=== PATIENT | female | born 1980 | race Caucasian/White ===

== ENCOUNTER 2020-03-16 14:23 | Emergency (ER) | payer OTHER, SELFPAY ==
--- NOTE | ~2020-03-16 | XR_ITS ---
XR hand LT min 3V 03/16/2020 15:00 INDICATION: Left hand pain for one week. PROCEDURE: 3 views left hand COMPARISON: No prior studies for comparison. FINDINGS: Fracture, dislocation or subluxation is not identified. The soft tissues appear within norm al limits. No foreign bodies are identified. IMPRESSION: 1: NO ACUTE BONE OR JOINT ABNORMALITY IDENTIFIED. Reviewed, dictated and finalized at location B.
[2020-03-16 14:35] VITALS: BP 168/99; PULSE 85; RESP 14; TEMP 37; O2SAT 99
--- NOTE | 2020-03-16 14:59 | ED.UPPEXIN ---
HPI - Extremity Injury (Upper) General Chief Complaint: Extremity Injury, Upper Stated Complaint: left hand swollen/painful Time Seen by Provider: 03/16/20 14:50 Source: patient Mode of arrival: ambulatory Limitations: no limitations History of Present Illness HPI narrative: Shi Lakhani is a 39 yo female with a PMH of lupus and kidney disease who comes to express care with a left wrist swelling on the medial side; this is a recurrent condition that she has had cortisone shots before for the condition; she has occasionally used hydrocodone for the pain. 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 EYES: Denies visual changes, redness, discharge. ENT: Denies rhinorrhea, congestion, sore throat, otalgia. CARDIOVASCULAR: Denies chest pain, palpitations, edema. RESPIRATORY: Denies dyspnea, wheezing, cough GASTROINTESTINAL: Denies abdominal pain, nausea, vomiting, diarrhea. GENITOURINARY: Denies dysuria, hematuria, abnormal discharge SKIN: Denies rash or itching. NEUROLOGIC: Denies numbness, or focal weakness. PSYCHIATRIC: Denies anxiety or depression. Left wrist medial swelling and pain-no injury but overuse PMFSH Past Medical History Medical History CKD (chronic kidney disease) Lupus Family History Family History Other Diabetes mellitus Heart disease Social History Social History (Updated 03/16/20 @ 15:06 by Tessa Antunez CNP) Smoking status: Never smoker Alcohol intake: never Comments At time of signature, I agree with nursing past medical, surgical, social and family history. There is no relevant family history pertinent to the presenting complaint. Blood pressure is elevated today possibly due to pain and swelling; current chronic kidney disease, or lack of medication Exam Narrative: Exam Narrative: GENERAL: This is a well-nourished, well-developed patient, in mild distress. HEAD: normocephalic, atraumatic. EYES: Sclera clear/white. Vision is grossly intact. EARS: External ears normal, Hearing grossly intact. NOSE: External nose normal without nasal discharge, nares without redness, no rhinorrhea. THROAT: Mucous membranes moist, NECK: Neck supple, non-tender CARDIOVASCULAR: Regular rate and rhythm without murmurs, gallops, or rubs. RESPIRATORY: Clear to auscultation. Breath sounds equal bilaterally. No wheezes, rales, or rhonchi. GASTROINTESTINAL: Abdomen soft, SKIN: warm, intact with no suspicious lesions or rash, good texture and turgor. NEURO: awake, alert, and oriented to person, place and time. There were no obvious focal neurologic abnormalities. Steady gait EXTREMITIES: Normal range of motion. Left wrist: ` Swelling at joint which appears to be a ganglia sorts soft not red not warm to touch, pain on movement BACK: Nontender without deformity Course Course Emergency Course: X-ray of left wrist-results:negative for soft tissue swelling or bony growth, no trauma. Antonio wrap applied, Antonio wrap-Tramadol with pain Follow-up with orthopedist for possible steroid injection Once acquired after patient was discharged to let me know that patient has monthly prescriptions 120 hydrocodone fives-due in 9 days for refill. Which
[2020-03-16 15:19] VITALS: BP 168/98
== END 2020-03-16 15:28 | disposition home or self-care (01) ==
PROVIDERS: Emergency Provider Nurse Practitioner
DX: M77.9 Enthesopathy, unspecified (principal); N18.9 Chronic kidney disease, unspecified
CPT/HCPCS: 73130; 99203; G0463

== ENCOUNTER 2022-07-16 18:15 | Emergency (ER) | payer OTHER, SELFPAY ==
[2022-07-16 18:34] VITALS: BP 184/97; PULSE 75; RESP 16; TEMP 36.4; O2SAT 100
--- NOTE | 2022-07-16 18:48 | ED.URI ---
HPI - URI/Sore Throat General Chief Complaint: Upper Respiratory Infection Stated Complaint: sore throat Source: patient and RN notes reviewed Mode of arrival: ambulatory Limitations: no limitations History of Present Illness HPI Narrative: 42 y/o female presented for c/o fatigue, headache, sinus congestion, cough and sore throat for one week. Not taking anything for symptoms. Endorses occasional fever, states she gets low fevers with Lupus as well. Denies sob, wheezing, n/v/d. Denies sick contacts. MD elicited complaint: cough Related Data Home Medications Medication Instructions Recorded Confirmed hydroxychloroquine 200 mg tablet 400 mg PO DAILY 03/16/20 07/16/22 (Plaquenil) losartan 25 mg tablet 25 mg PO DAILY 03/16/20 07/16/22 mycophenolate mofetil 500 mg 1,000 mg PO Q12H 03/16/20 07/16/22 tablet (CellCept) prednisone 5 mg tablet 5 mg PO DAILY 03/16/20 07/16/22 Allergies Allergy/AdvReac Type Severity Reaction Status Date / Time Penicillins Allergy Unknown Hives Verified 03/16/20 14:44 tramadol Allergy Hives Verified 03/16/20 15:22 Review of Systems Review of Systems: per [facility] Past Medical History Medical History CKD (chronic kidney disease) Lupus Family History Family History Other Diabetes mellitus Heart disease Social History Social History Smoking status: Never smoker Alcohol intake: never Exam Narrative: GENERAL: mildly Ill-appearing, nontoxic EYES: PERRLA, conjunctivae clear ENT: Mucous membranes moist. TMs pearly huff with dull light reflex bilaterally; no tragal tenderness. Oropharynx erythematous without lesions or exudate, no drooling, no hoarseness, no trismus, uvula midline. NECK: Supple. No lymphadenopathy CHEST: Clear to auscultation, breath sounds equal. No wheezing, rhonchi, rales, or stridor. No respiratory distress, speaks in full sentences. HEART: Regular rate and rhythm. SKIN: Warm, dry, no rash. NEURO: Alert and oriented x3. PSYCH: Normal mood and affect Course Course Emergency Course: Patient is aware of diagnosis, understands and agrees to treatment plan. Anticipatory guidance given. Patient agrees to follow-up as directed and is aware of reasons to seek care at the emergency department. Portions of this record may have been created with voice recognition software Level of Care: Express Care Visit Vital Signs Vital signs: Vital Signs Temperature 97.5 F L 07/16/22 18:34 Pulse Rate 75 07/16/22 18:34 Respiratory Rate 16 07/16/22 18:34 Blood Pressure 184/97 H 07/16/22 18:34 Pulse Oximetry 100 07/16/22 18:34 Oxygen Delivery Room Air 07/16/22 18:34 Temperature 97.5 F L 07/16/22 18:34 Pulse Rate 75 07/16/22 18:34 Respiratory Rate 16 07/16/22 18:34 Blood Pressure 184/97 H 07/16/22 18:34 Pulse Oximetry 100 07/16/22 18:34 Oxygen Delivery Room Air 07/16/22 18:34 reviewed MDM - URI/Sore Throat MDM Narrative Medical decision making narrative: Admits to elevated bp's states 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 Strep negative. Advised supportive measures and signs/symptoms to go to the ER. Pt is appropriate for outpt treatment and f/u. Differential Diagnosis Differential diagnosis: Likely upper respiratory infection, sinusitis, viral infection and influenza Discharge Plan Discharge Clinical Impression: Upper respiratory infection Patient Disposition: Home, Self-Care Condition: Stable Instructions: Antibiotic Form, Upper Respiratory Infection (ED) Additional Instructions: Rapid strep swab was negative today You will be notified in a few days if the culture comes back positive for strep, and appropriate antibiotics will be called in at that time. if symptoms are due to a viral
== END 2022-07-16 19:05 | disposition home or self-care (01) ==
PROVIDERS: Emergency Provider Nurse Practitioner Family
DX: J06.9 Acute upper respiratory infection, unspecified (principal); M32.9 Systemic lupus erythematosus, unspecified; N18.9 Chronic kidney disease, unspecified
CPT/HCPCS: 87081; 87880; 99213; G0463